=== PATIENT | female | born 1955 | race Caucasian/White ===

== ENCOUNTER 2018-02-18 07:27 | Day surgery (SDC) | payer OTHER ==
[2018-02-18 07:54] VITALS: BMI 26.6
[2018-02-18 08:21] VITALS: TEMP 97.5
[2018-02-18] MEDS ORDERED: Propofol 10 mg/ml Inj (20 ML) ONE ×2 (08:36→09:51)
--- NOTE | 2018-02-18 09:50 | CP.SDSHP ---
Same Day Surgery H & P - History Proposed Procedure: colonoscopy Pre-Op Diagnosis: screening for colon cancer - Previous Medical/Surgical History Cardiac: Hypertension Misc: Other ("colitis") Previous Surgical History: denies - Allergies Allergies: Allergies No Known Allergies Allergy (Verified 02/18/18 07:53) - Physical Exam Vital Signs: Vital Signs 02/18/18 08:05 Temperature 97.5 F L Pulse Rate 64 Respiratory 19 Rate Blood Pressure 155/87 H O2 Sat by Pulse 97 Oximetry Mental Status: Alert & Oriented x3 Neuro: WNL Heart: WNL Lungs: WNL GI: WNL - Impression Impression: screening for colon cancer Pt. Evaluated Today:Candidate for Anesthesia & Procedure: Yes - Date & Time Date: 02/18/18 Time: 09:51 Short Stay Discharge - Short Stay Discharge Admitting Diagnosis/Reason for Visit: ENCOUNTER FOR SCREENING Disposition: HOME/ ROUTINE
[2018-02-18 12:17] VITALS: BP 126/64; PULSE 71; RESP 12; O2SAT 98
== END 2018-02-18 11:15 | disposition home or self-care (01) ==
LOC: C.ENDO 07:27
PROVIDERS: ATTEND Internal Medicine Gastroenterology
DX: Z12.11 Encounter for screening for malignant neoplasm of colon (principal); I10 Essential (primary) hypertension; K57.30 Diverticulosis of large intestine without perforation or abscess without bleeding; K64.1 Second degree hemorrhoids
CPT/HCPCS: 45380; J2704